=== PATIENT | male | born 1985 | race Two or more races ===

== ENCOUNTER 2024-03-27 00:08 | Inpatient (IN) | payer OTHER ==
[~2024-03-27] VITALS: Ht 180.3 cm; Wt 111.4 kg
[2024-03-27 00:48] LABS: BASOPHILS % (AUTO) 1.5 % (0.0-2.0); EOSINOPHILS % (AUTO) 1.5 % (1.0-6.0); HEMATOCRIT 37.7 % (41-53); HEMOGLOBIN 12.6 g/dL (13.5-17.5); LYMPHOCYTES # (AUTO) 2.6 K/uL (1.0-4.8); LYMPHOCYTES % (AUTO) 38.7 % (22.0-44.0); MEAN CORPUSCULAR HEMOGLOBIN 28.8 pg (26.0-34.0); MEAN CORPUSCULAR HGB CONC 33.4 G/dL (31.0-37.0); MEAN CORPUSCULAR VOLUME 86 fL (80-100); MONOCYTES # (AUTO) 0.6 K/uL (0.1-1.0); MONOCYTES % (AUTO) 9.4 % (2.0-9.0); NEUTROPHILS # (AUTO) 3.3 K/uL (1.8-7.7); NEUTROPHILS % (AUTO) 48.9 % (40.0-70.0); PLATELET COUNT (AUTO) 334 K/uL (150-450); RED BLOOD CELL COUNT(AUTO) 4.36 MIL/uL (4.50-5.90); RED CELL DISTRIBUTION WIDTH 15.2 % (11.5-14.5); WHITE BLOOD COUNT (AUTO) 6.7 K/uL (4.5-11.0)
[2024-03-27 00:57] LABS: ANION GAP 11 mmol/L (8-16); CALCIUM, TOTAL 8.6 mg/dL (8.8-10.5); CARBON DIOXIDE 26 mmol/L (22-29); CHLORIDE 103 mmol/L (98-107); CREATININE 0.86 mg/dL (0.60-1.30); GLOMERULAR FILTR. RATE CALC > 60 mL/min (>60); GLUCOSE,RANDOM 95 mg/dL (70-110); POTASSIUM 3.5 mmol/L (3.5-5.1); SODIUM SERUM 140 mmol/L (136-145); UREA NITROGEN, BLOOD 8 mg/dL (7-18)
[2024-03-27 01:00] LABS: ALCOHOL, BLOOD (SERUM) 83 mg/dL (0-10)
[2024-03-27] MEDS: ChlordiazePOXIDE HCL 25 MG CAPSULE PO ONE (01:20)
[2024-03-27] MEDS: CloNIDine HCL 0.1 MG TABLET PO ONE (01:20)
[2024-03-27] MEDS: MAGNESIUM SULFATE 2 GM, MVI, ADULT NO.1 WITH VIT K 10 ML, THIAMINE 100 MG, FOLIC ACID 1... IV ONE ×2 (01:21→12:20)
[2024-03-27 09:09] VITALS: BP 130/76; PULSE 84; RESP 18; TEMP 97.6; O2SAT 97
[2024-03-27] MEDS: ChlordiazePOXIDE HCL 25 MG CAPSULE PO PRN (11:19)
[2024-03-27 12:13] LABS: ALCOHOL, URINE DRUG SCREEN NEGATIVE (NEGATIVE); AMPHET/METH SCREEN,URINE NEGATIVE (NEGATIVE); BARBITURATE SCREEN, URINE NEGATIVE (NEGATIVE); BENZODIAZEPINES SCREEN,URINE NEGATIVE (NEGATIVE); CANNABINOID SCREEN,URINE NEGATIVE (NEGATIVE); COCAINE SCREEN,URINE NEGATIVE (NEGATIVE); METHADONE SCREEN, URINE NEGATIVE (NEGATIVE); OPIATE SCREEN,URINE NEGATIVE (NEGATIVE); PHENCYCLIDINE SCREEN,URINE NEGATIVE (NEGATIVE)
[2024-03-27 15:42] VITALS: BP 130/90; PULSE 84; RESP 18; TEMP 99; O2SAT 98
[2024-03-27 20:25] VITALS: BP 141/99; PULSE 84; RESP 18; TEMP 98.7; O2SAT 98
[2024-03-27] MEDS: ZOLPIDEM TARTRATE 10 MG TABLET PO ONE (21:13)
[2024-03-28 05:56] VITALS: BP 146/91; PULSE 68; RESP 19; TEMP 97.9; O2SAT 100
[2024-03-28] MEDS ORDERED: ChlordiazePOXIDE HCL 25 MG CAPSULE PO PRN (07:00)
[2024-03-28 08:00] VITALS: BP 145/93; PULSE 82; RESP 18; TEMP 98.5; O2SAT 97
[2024-03-28] MEDS: ChlordiazePOXIDE HCL 25 MG CAPSULE PO SCH (08:45)
[2024-03-28] MEDS ORDERED: MULT1TAB28 PO (12:51)
[2024-03-28] MEDS: MULTIVITAMINS WITH MINERALS, THERAPEUTIC TABLET PO SCH (16:30)
[2024-03-30] MEDS ORDERED: ChlordiazePOXIDE HCL 10 MG CAPSULE PO PRN (07:00)
[2024-03-30] MEDS ORDERED: ChlordiazePOXIDE HCL 10 MG CAPSULE PO SCH (09:00)
[2024-03-31] MEDS ORDERED: ChlordiazePOXIDE HCL 10 MG CAPSULE PO PRN (07:00)
== END 2024-03-28 20:36 | DRG 897 ==
LOC: EMS 00:09 → EDH 05:54 → 6S 09:02
PROVIDERS: ADMIT Internal Medicine; ATTEND Internal Medicine
DX: F10.239 Alcohol dependence with withdrawal, unspecified (principal); I10 Essential (primary) hypertension; F41.9 Anxiety disorder, unspecified; E66.9 Obesity, unspecified; Z87.891 Personal history of nicotine dependence; Z68.31 Body mass index [BMI] 31.0-31.9, adult
CPT/HCPCS: 71045; 80048; 80307; 85025; 93005; 99285; G0480; J3411; J3475; J3490; J7030; 36415-L1; 36415-TC